=== PATIENT | female | born 1970 | race Caucasian/White ===

== ENCOUNTER → 2021-01-17 | Outpatient (CLI) | payer OTHER ==
--- NOTE | 2021-01-17 11:48 | RAD ---
EXAM: Chest CT without intravenous contrast. HISTORY: Shortness of breath. TECHNIQUE: Computed tomographic images of the chest were obtained without contrast. Multiplanar refor matting was performed. *One or more of the following individualized dose reduction techniques were utilized for this examina tion: 1. Automated exposure control. 2. Adjustment of the mA and/or kV according to patient size. 3. Use of iterative reconstruction technique. COMPARISON: None. FINDINGS: The heart is normal in size. The aorta is normal in caliber. No pathologically enlarged lym ph node is seen. There is no pneumothorax or pleural effusion. There is a 2 mm nodular opacity within the posterior medial left upper lobe which is due to to volume averaging artifact related to a pulmo nary vessel. No suspicious nodule is seen. The airways widely patent. There is no acute finding invol ving the upper abdomen or osseous structures. There is a small incidental osseous hemangioma at T3. IMPRESSION: No acute thoracic finding. Electronically signed by: Nella Camacho MD (01/17/2021 11:45 AM) [id number]
== END ==
LOC: CT 10:59
PROVIDERS: ATTEND Family Medicine
DX: R06.02 Shortness of breath (principal); R91.8 Other nonspecific abnormal finding of lung field; D18.09 Hemangioma of other sites
CPT/HCPCS: 71250